=== PATIENT | male | born 1975 | race Caucasian/White ===

== ENCOUNTER 2017-06-26 21:00 | Emergency (ER) | payer BC ==
[~2017-06-26] VITALS: Ht 170.2 cm; Wt 70.1 kg
[2017-06-26] MEDS ORDERED: NORCO 5/3251 TABLET PO (22:38)
[2017-06-26] MEDS ORDERED: NAPROSYN500 MG PO (22:38)
[2017-06-26 23:12] VITALS: BP 122/92
== END 2017-06-26 23:12 | disposition home or self-care (01) ==
LOC: EME 21:00
DX: S43.401A Unspecified sprain of right shoulder joint, initial encounter (principal); S50.311A Abrasion of right elbow, initial encounter; W18.30XA Fall on same level, unspecified, initial encounter; Y93.64 Activity, baseball; Y93.02 Activity, running; E78.5 Hyperlipidemia, unspecified; Z98.890 Other specified postprocedural states
CPT/HCPCS: 73030; 99281; 99284